=== PATIENT | female | born 1975 | race Caucasian/White ===

== ENCOUNTER 2019-09-10 05:42 | Inpatient (IN) | payer OTHER ==
[2019-09-10] MEDS ORDERED: Celecoxib 200 MG Cap PO ONE (05:51)
[2019-09-10] MEDS ORDERED: Gabapentin 300 MG Cap PO ONE (05:52)
[2019-09-10] MEDS ORDERED: Acetaminophen 500 MG Tab PO ONE (06:00)
[2019-09-10] MEDS ORDERED: Scopolamine 1.5 MG Transdermal Patch TOP ONE (06:00)
[2019-09-10] MEDS ORDERED: Dextrose 5%-Lactated Ringers 1,000 ML IV SCH (06:00)
[2019-09-10] MEDS ORDERED: Amphetamine/Dextroamphetamine Salts 10 MG Tab PO ONE (06:02)
[2019-09-10] MEDS ORDERED: cefOXitin 2 GM Vial ONE (06:54)
[2019-09-10] MEDS ORDERED: fentaNYL 250 MCG/5 ML SDV ONE ×3 (07:09→08:45)
[2019-09-10] MEDS ORDERED: Midazolam 1 MG/ML 2 ML SDV ONE (07:09)
[2019-09-10] MEDS ORDERED: Rocuronium 50 MG/5 ML Vial ONE ×2 (07:10→08:42)
[2019-09-10] MEDS ORDERED: Succinylcholine 200 MG/10 ML MDV ONE (07:10)
[2019-09-10] MEDS ORDERED: Neostigmine Methylsulfate 1 MG/ML 5 ML Syringe ONE (07:10)
[2019-09-10] MEDS ORDERED: Glycopyrrolate 0.2 MG/ML 5 ML MDV ONE (07:10)
[2019-09-10] MEDS ORDERED: Dexamethasone 4 MG/ML SDV ONE (07:10)
[2019-09-10] MEDS ORDERED: Ondansetron 4 MG/2 ML SDV ONE (07:10)
[2019-09-10] MEDS ORDERED: Propofol 200 MG/20 ML SDV ONE (07:10)
[2019-09-10] MEDS ORDERED: cefOXitin 2 GM in Sodium Chloride 0.9% 50 ML IV ONE (07:30)
[2019-09-10] MEDS ORDERED: Ketamine 500 MG/5 ML MDV IV SCH (07:45)
[2019-09-10] MEDS ORDERED: Lidocaine 2% 100 MG/5 ML Syringe IVPUSH SCH (07:45)
[2019-09-10] MEDS ORDERED: Ketamine 50 MG in Sodium Chloride 0.9% 49.5 ML IV SCH (07:45)
[2019-09-10] MEDS ORDERED: Tranexamic Acid 1,000 MG in Sodium Chloride 0.9% 50 ML IV ONE ×2 (09:00→12:00)
[2019-09-10] MEDS ORDERED: Coagulation Factor VIIa Recombinant (per MCG) 2 MG Vial IVPUSH ONE (09:45)
[2019-09-10] MEDS ORDERED: fentaNYL 100 MCG/2 ML SDV IVPUSH ONE ×2 (09:51→10:08)
[2019-09-10] MEDS: hydrOXYzine HCL 100 MG/2 ML SDV IM ONE ×2 (09:56→11:40)
[2019-09-10] MEDS ORDERED: Ondansetron 4 MG/2 ML SDV IVPUSH ONE (09:58)
[2019-09-10] MEDS ORDERED: Labetalol 20 MG/4 ML Syringe IVPUSH ONE (10:16)
[2019-09-10] MEDS ORDERED: Cyclobenzaprine 10 MG Tab PO PRN (11:21)
[2019-09-10] MEDS ORDERED: diphenhydrAMINE 50 MG/ML SDV IVPUSH PRN (11:22)
[2019-09-10] MEDS ORDERED: hydrOXYzine HCL 100 MG/2 ML SDV IM PRN (11:22)
[2019-09-10] MEDS ORDERED: Ondansetron 4 MG/2 ML SDV IVPUSH PRN (11:22)
[2019-09-10] MEDS ORDERED: Metoclopramide 10 MG/2 ML SDV IVPUSH PRN (11:22)
[2019-09-10] MEDS ORDERED: HYDROmorphone 0.5 MG/0.5 ML Syringe IVPUSH PRN (11:22)
[2019-09-10] MEDS: Labetalol 20 MG/4 ML Syringe IVPUSH PRN ×2 (11:55→12:54)
[2019-09-10] MEDS: Lidocaine 0.4%/D5W 2 GM/500 ML BAG IV SCH (12:04)
[2019-09-10] MEDS: Acetaminophen Soln 650 MG/20.3 ML UD Cup PO SCH ×2 (12:09→17:32)
[2019-09-10] MEDS: Pantoprazole 40 MG Vial IVPUSH SCH (12:09)
[2019-09-10] MEDS: HYDROmorphone 1 MG/ML Syringe IV PRN ×2 (12:35→17:32)
[2019-09-10] MEDS: Dextrose 5%-Lactated Ringers 1,000 ML IV SCH ×2 (13:00→22:38)
[2019-09-10] MEDS: Gabapentin 250 MG/5 ML Solution ML 470 ML Bottle PO SCH ×2 (14:00→20:05)
[2019-09-10] MEDS: cefOXitin 2 GM in Sodium Chloride 0.9% 50 ML IV SCH ×2 (14:01→20:05)
[2019-09-10] MEDS ORDERED: Meperidine PF 100 MG/ML Syringe IM ONE (14:40)
[2019-09-10] MEDS ORDERED: hydrOXYzine HCL 100 MG/2 ML SDV IM ONE (14:40)
[2019-09-10] MEDS: MVI, Adult with Vitamin K 10 ML, Thiamine 200 MG, Chromium/Copper/Mang/Selen/Zn 1 ML in... IV SCH ×4 (16:08)
[2019-09-10] MEDS: traZODone 50 MG Tab PO SCH (21:33)
[2019-09-11] MEDS ORDERED: Iopamidol 510 MG/ML 50 ML SDV PO ONE (00:41)
[2019-09-11] MEDS: Acetaminophen Soln 650 MG/20.3 ML UD Cup PO SCH ×4 (00:56→18:29)
[2019-09-11] MEDS: cefOXitin 2 GM in Sodium Chloride 0.9% 50 ML IV SCH ×4 (01:03→20:55)
[2019-09-11] MEDS ORDERED: Iopamidol 612 MG/ML 50 ML SDV PO ONE (01:40)
--- NOTE | 2019-09-11 02:41 | CRLCR ---
INDICATION: Status post gastric bypass. COMPARISON: None available. FINDINGS: Limited modified upper GI examination is performed with 2 upright AP films of the abdomen after swelling oral contrast. There is prompt passage of the oral contrast through the esophagus into the gastric remnant and into the nondistended small bowel. There is no sign of any extravasation of contrast. Two Dave Parikh drains are seen in the left upper quadrant of the abdomen. The bowel gas pattern is unremarkable with no sign of obstruction or ileus. The lung bases are clear. IMPRESSION: Satisfactory appearance of gastric bypass surgery with no sign of any stricture or extravasation. Dictated by dEward Byrd MD @ Sep 11 2019 2:37AM Signed by Dr. Edward Byrd @ Sep 11 2019 2:39AM
[2019-09-11] MEDS: Dextrose 5%-Lactated Ringers 1,000 ML IV SCH ×2 (04:37→13:31)
[2019-09-11 04:57] LABS: HEMOGLOBIN A1C 5.3 % (4.5-6.2)
[2019-09-11] MEDS: Lidocaine 0.4%/D5W 2 GM/500 ML BAG IV SCH (08:35)
[2019-09-11] MEDS: Celecoxib 200 MG Cap PO SCH (08:35)
[2019-09-11] MEDS: Gabapentin 250 MG/5 ML Solution ML 470 ML Bottle PO SCH ×3 (08:36→20:53)
[2019-09-11] MEDS: SCOPOLAMINE PATCH CHECK TOP SCH (08:37)
[2019-09-11] MEDS: [UNRECOGNIZED DRUG - REMARK] TOP SCH (08:37)
[2019-09-11] MEDS: Pantoprazole 40 MG Vial IVPUSH SCH (12:27)
[2019-09-11] MEDS ORDERED: Dextrose 5%-Lactated Ringers 1,000 ML IV SCH (14:15)
[2019-09-11] MEDS: MVI, Adult with Vitamin K 10 ML, Thiamine 200 MG, Chromium/Copper/Mang/Selen/Zn 1 ML in... IV SCH ×4 (15:58)
[2019-09-11] MEDS: Amphetamine/Dextroamphetamine Salts 10 MG Tab PO SCH (15:58)
[2019-09-11] MEDS: traZODone 50 MG Tab PO SCH (20:55)
[2019-09-11] MEDS ORDERED: Metoclopramide 10 MG Tab PO PRN (21:27)
[2019-09-11] MEDS: Ondansetron 4 MG Tab.DIS PO PRN (21:55)
[2019-09-12] MEDS: Acetaminophen Soln 650 MG/20.3 ML UD Cup PO SCH ×4 (00:40→17:48)
[2019-09-12] MEDS: HYDROmorphone 2 MG Tab PO PRN ×5 (01:02→21:47)
[2019-09-12] MEDS ORDERED: Sodium Chloride 0.9% 10 ML Syringe IV SCH (08:00)
[2019-09-12] MEDS ORDERED: Magnesium Hydroxide 400 MG/5 ML Susp 30 ML Cup PO ONE (09:00)
[2019-09-12] MEDS ORDERED: Cyanocobalamin (Vitamin B12) 1,000 MCG/ML SDV IM ONE (09:00)
[2019-09-12] MEDS: Celecoxib 200 MG Cap PO SCH (09:14)
[2019-09-12] MEDS: SCOPOLAMINE PATCH CHECK TOP SCH (09:15)
[2019-09-12] MEDS: [UNRECOGNIZED DRUG - REMARK] TOP SCH (09:15)
[2019-09-12] MEDS: Amphetamine/Dextroamphetamine Salts 10 MG Tab PO SCH ×2 (09:19→16:42)
[2019-09-12] MEDS: Gabapentin 250 MG/5 ML Solution ML 470 ML Bottle PO SCH ×3 (09:19→21:41)
[2019-09-12] MEDS ORDERED: Magnesium Hydroxide 400 MG/5 ML Susp 30 ML Cup PO PRN (14:00)
[2019-09-12] MEDS: Ondansetron 4 MG Tab.DIS PO PRN (17:48)
[2019-09-12] MEDS: traZODone 50 MG Tab PO SCH (21:42)
[2019-09-13] MEDS: Acetaminophen Soln 650 MG/20.3 ML UD Cup PO SCH ×2 (00:47→05:26)
[2019-09-13] MEDS: Celecoxib 200 MG Cap PO SCH (07:47)
[2019-09-13] MEDS: Amphetamine/Dextroamphetamine Salts 10 MG Tab PO SCH (07:57)
[2019-09-13] MEDS: Gabapentin 250 MG/5 ML Solution ML 470 ML Bottle PO SCH (08:00)
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
--- NOTE | 2019-09-20 10:58 | OR ---
DATE OF PROCEDURE: 09/10/2019 SURGEON: Florentino Chadwick MD PREOPERATIVE DIAGNOSIS: Morbid obesity. POSTOPERATIVE DIAGNOSES: 1. Morbid obesity. 2. Marked hepatomegaly. 3. Paraesophageal diaphragmatic hernia. 4. Mediastinal lipoma. 5. Ischemic area of gastric pouch following further resection of gastric pouch. OPERATIVE PROCEDURE: Diagnostic laparoscopy with: 1. Laparoscopic Shukri-en-Y gastric bypass with long limb gastroenterostomy (08710). 2. Duong-Cut needle liver biopsy (95890). 3. Repair of paraesophageal diaphragmatic hernia (76035). 4. Excision of mediastinal lipoma (55526). 5. Partial gastrectomy (59275). ANESTHESIA: General. CASTING MACHINE OPERATOR: Devika Maher PA-C INDICATIONS FOR PROCEDURE: This is a 43-year-old female presenting with longstanding morbid obesity and increasingly significant comorbidities. After preoperative evaluation and discussion, she wished to proceed with a gastric bypass procedure. Potential risks of the procedure including bleeding, infection, leaks from various GI tract closures, as well as possible bowel obstruction were all gone over along with the remote possibility of cardiopulmonary, septic, or hemorrhagic complications leading to were all reviewed, and the patient wishes to proceed. DETAILS OF PROCEDURE: The patient was taken to the operating room and placed in a supine position. After general endotracheal anesthesia was induced, she was converted to a lithotomy position and the abdomen prepped and draped. At 15 cm inferior and 5 cm left of the xiphoid process, transverse incision was made and the peritoneal cavity entered under direct vision with an Optiview trocar, inflated to 15 mmHg pressure with CO2. Laparoscope was reinserted. No underlying trocar insertion site injuries were seen. Following this, 5 additional trocars were placed across the upper mid abdomen. Bilateral transversus abdominis plane blocks were placed. The patient was noted to have marked hepatomegaly with the liver being grossly fatty infiltrated. Duong-Cut needle biopsy was obtained from the left lobe of the liver. Minimal bleeding from the biopsy sites was controlled with electrocautery. The omentum was then divided in the midline up to the level of the transverse colon. This allowed identification of small bowel to the ligament of Treitz. Small bowel was then traced out 150 cm distal to that point and was divided transversely with a JUN stapler. Small bowel was then traced out an additional 200 cm where the [id number] enteroenterostomy was accomplished with an internal firing of the Endo-JUN 60 mm stapler. Common opening was then closed transversely with the same stapler and the angles anastomosed and mesenteric defect approximated with some 0 Ethibond stitch along with 4 mL of fibrin sealant. The cut end of the Shukri limb was then from the mesentery for a few centimeters which allowed an antecolic position of the Shukri limb up along the gastroesophageal junction without tension. The liver was then retracted anteriorly. The patient was noted to have a moderate-sized paraesophageal diaphragmatic hernia containing some perigastric fat and gastric fundus along with the tongue of omentum along the course of the esophagus. This was reduced and the peritoneal cavity overlying incised and reflected downward. During the course of the dissection, mediastinal lipoma was encountered. This was dissected free and excised as well. The anterior repair of the diaphragmatic hernia was accomplished with 0 Ethibond sutures reinforced with PTFE pledgets. The gastrointestinal catheter was inflated with 15 mL and pulled up snugly against the EG junction. Gastric wall over the apex balloon was then marked with electrocautery and balloon catheter deflated and pulled up from the esophagus. The lesser omental tissue was then divided, allowing dissection behind the stomach at that level, and the pouch formation was initiated with a transverse firing of the JUN stapler at the level of the cauterized kathy. Pouch was then completed with 3 additional firings of the JUN staplers up to and through the angle of His. Upon completion of the pouch, both staple lines were noted to be intact. Of note, at this point, the end of the poorly formed gastric pouch was fairly ischemic in appearance. Roughly 1 cm additional length of the gastric pouch at this end was then excised by means of JUN black and purple loads. The gastric specimen was then delivered from the field. The anvil of a 25 mm EEA stapler was attached to a Medford sump type tube. The latter was brought down through the mouth and taken out through a small opening in the gastric pouch, allowing the anvil likewise to be pulled down to within the gastric pouch. The divided end of the Shukri limb was then opened and main body of the EEA stapler passed several centimeters from the limb of the small bowel, brought up the anvil, and united with it, thus creating the gastrojejunostomy. Upon removal of the stapler, double donuts of mucosa were noted within it. The small bowel was closed off with a vascular staple line. Gastrojejunostomy was reinforced with some 3-0 Vicryl seromuscular stitch along with fibrin sealant. Leak test was accomplished with injection of 120 mL of air in the gastric pouch while it was submerged with cefoxitin-containing saline solution. No leaks were identified. A single Dave-Parikh drain was taken out through the left lateral trocar site and positioned adjacent to the gastrojejunostomy, from there up into the splenic fossa. The trocars were then sequentially removed and the peritoneal cavity deflated. The incision closed with some 4-0 Vicryl skin stitch. The patient was taken to the recovery room in satisfactory condition. One additional note on this patient is all of her divided tissues including staple lines had a suggestion of quite significantly abnormal bleeding suggestive of platelet dysfunction. During the course of the procedure, the patient received 1 g of tranexamic acid IV and was scheduled to have another one 3 hours later and also received 4 mg of activated Factor VII. At the end of the procedure, there did appear to be good hemostasis, and she will not be started on heparin postoperatively, but encouraged to maximize early activity and maintain as much activity in and out of bed as possible over the next few days. Physician litigation legal assistant, Devika Maher, played an essential role in assisting in this case, helping to position the patient, retract structures as needed, as well as suturing and cutting sutures when indicated. Her presence improved patient safety and decreased operative time. Florentino Chadwick MD /[id number]
== END 2019-09-13 10:10 | disposition home or self-care (01) | DRG 621 ==
LOC: JP.SDSSCHI 05:42 → JP.SDS 05:42 → JP.2SS 09:15 → EDSTATUS 10:30
PROVIDERS: ADMIT Surgery; ATTEND Surgery
PROC: 0D164ZA Bypass Stomach to Jejunum, Percutaneous Endoscopic Approach (ICD-10-PCS; principal; 2019-09-10)
PROC: 0FB24ZX Excision of Left Lobe Liver, Percutaneous Endoscopic Approach, Diagnostic (ICD-10-PCS; 2019-09-10)
PROC: 0BQT4ZZ Repair Diaphragm, Percutaneous Endoscopic Approach (ICD-10-PCS; 2019-09-10)
PROC: 0DB64ZZ Excision of Stomach, Percutaneous Endoscopic Approach (ICD-10-PCS; 2019-09-10)
PROC: 0JB63ZZ Excision of Chest Subcutaneous Tissue and Fascia, Percutaneous Approach (ICD-10-PCS; 2019-09-10)
DX: E66.01 Morbid (severe) obesity due to excess calories (principal); Z68.41 Body mass index [BMI] 40.0-44.9, adult; F07.81 Postconcussional syndrome; E21.3 Hyperparathyroidism, unspecified; H52.03 Hypermetropia, bilateral; K44.9 Diaphragmatic hernia without obstruction or gangrene; D17.4 Benign lipomatous neoplasm of intrathoracic organs; F90.9 Attention-deficit hyperactivity disorder, unspecified type; S06.6X0D Traumatic subarachnoid hemorrhage without loss of consciousness, subsequent encounter; W01.0XXD Fall on same level from slipping, tripping and stumbling without subsequent striking against object, subsequent encounter; Z78.0 Asymptomatic menopausal state; Z79.899 Other long term (current) drug therapy; Z88.8 Allergy status to other drugs, medicaments and biological substances; Z87.891 Personal history of nicotine dependence
CPT/HCPCS: 36415; 74240; 80053; 83036; 83735; 84100; 85025; 85730; 86850; 86900; 86901; 88304; 88307; 88313; A9270-GY; C9113; J0171; J0330; J0694; J1100; J1170; J2001; J2175; J2250; J2405; J2704; J2710; J2795; J3010; J3410; J3411; J3420; J3490; J7050; J7121; J7189; Q9967

== ENCOUNTER 2019-12-20 07:24 | Day surgery (SDC) | payer OTHER ==
[~2019-12-20 07:24] MED LIST: Cyanocobalamin (Vitamin B12) 1,000 MCG/ML SDV IM ONE; Glycopyrrolate 0.2 MG/ML 2 ML SDV IVPUSH ONE; Lactated Ringers 1,000 ML IV SCH
[2019-12-20] MEDS ORDERED: MVI, Adult with Vitamin K 10 ML, Thiamine 200 MG, Chromium/Copper/Mang/Selen/Zn 1 ML in... IV ONE ×4 (07:30)
[2019-12-20] MEDS ORDERED: fentaNYL 100 MCG/2 ML SDV ONE (08:15)
[2019-12-20] MEDS ORDERED: Propofol 200 MG/20 ML SDV ONE (08:15)
[2019-12-20] MEDS ORDERED: Midazolam 1 MG/ML 2 ML SDV ONE (08:16)
[2019-12-20] MEDS ORDERED: Dexamethasone 4 MG/ML SDV ONE (08:56)
--- NOTE | 2019-12-22 14:05 | OR ---
DATE OF PROCEDURE: 12/20/2019 SURGEON: Florentino Chadwick MD PREOPERATIVE DIAGNOSIS: Probable stricture at gastrojejunostomy. POSTOPERATIVE DIAGNOSIS: Mild stricture at gastrojejunostomy. OPERATIVE PROCEDURE: Upper gastrointestinal endoscopy with dilation of gastrojejunostomy (99604). ANESTHESIA: IV sedation. INDICATION FOR PROCEDURE: The patient is status post Shukri-en-Y gastric bypass and presenting with some stricturing symptoms at the gastrojejunostomy. Plan is to proceed with upper GI endoscopy with dilation as indicated. Potential risks including bleeding and perforation were discussed and the patient wishes to proceed. DETAILS OF PROCEDURE: The patient was taken to the operating room and placed in the left lateral decubitus position. IV sedation was administered, after which the upper GI endoscope was passed orally through the length of the esophagus and into the gastric pouch. The patient had some narrowing on the gastrojejunostomy and the 1 cm scope was able to be easily passed through the anastomosis and no problems were noted. A Bard gastrointestinal balloon catheter was centered across the anastomosis and inflated to 45-Hungarian stage I and held there for 1 minute, after which balloon catheter was deflated and withdrawn. visualized some increase in diameter anastomosis indicating some degree of dilation. No complications were noted. The procedure was concluded. The patient was taken to the recovery room in satisfactory condition. Florentino Chadwick MD /[id number]
== END 2019-12-20 11:46 | disposition home or self-care (01) ==
LOC: JP.SDS 07:24
PROVIDERS: ATTEND Surgery
DX: K94.23 Gastrostomy malfunction (principal); E66.9 Obesity, unspecified; Z79.899 Other long term (current) drug therapy; Z98.84 Bariatric surgery status; Z88.8 Allergy status to other drugs, medicaments and biological substances; Z68.34 Body mass index [BMI] 34.0-34.9, adult
CPT/HCPCS: 36415; 43245; 80053; 82306; 82525; 82607; 82728; 82746; 83735; 84425; 84590; 84630; 85027; J1100; J2250; J2704; J3010; J3411; J3420; J3490; J7120